=== PATIENT | male | born 1955 | race Caucasian/White ===

== ENCOUNTER 2017-07-16 14:25 | Emergency (ER) | payer OTHER ==
[~2017-07-16] VITALS: Ht 172.7 cm; Wt 79.8 kg
[~2017-07-16 14:25] MED LIST: ASPIRIN EC325 MG PO; ATORVASTATIN CA80 MG PO; EFFIENT10 MG PO; LISINOPRIL2.5 MG PO; LOPRESSOR25 MG PO; NICOTINE PATCH1 EAC1 TD; NITROSTAT0.4 MG SL
[2017-07-16] MEDS ORDERED: ASPIR 8181 M1 PO (14:38)
[2017-07-16] MEDS ORDERED: FLEXERIL10 MG PO (16:14)
[2017-07-16] MEDS ORDERED: NORCO 5/3251 TABLET PO (16:14)
[2017-07-16 17:35] VITALS: BP 160/86
== END 2017-07-16 17:35 | disposition home or self-care (01) ==
LOC: EME 14:25
DX: S00.03XA Contusion of scalp, initial encounter (principal); S16.1XXA Strain of muscle, fascia and tendon at neck level, initial encounter; R51 Headache; R53.1 Weakness; W22.09XA Striking against other stationary object, initial encounter; Y99.0 Civilian activity done for income or pay; Z79.82 Long term (current) use of aspirin; K21.9 Gastro-esophageal reflux disease without esophagitis; Z95.5 Presence of coronary angioplasty implant and graft; F17.200 Nicotine dependence, unspecified, uncomplicated
CPT/HCPCS: 70450; 72125; 99281; 99284; J2270